=== PATIENT | male | born 1935 | race Caucasian/White ===

== ENCOUNTER 2017-12-12 19:08 | Inpatient (IN) | payer OTHER ==
[~2017-12-12] VITALS: Ht 170.2 cm; Wt 112.6 kg
[~2017-12-12 19:08] MED LIST: ACTEMRA162 MG/0.9 SC; ALENDRONATE SOD35 M2 PO; ALLOPURINOL300 M1 PO; ASPIRIN81 M4 PO; ATORVASTATIN CA20 M1 PO; ATORVASTATIN CA80 M1 PO; CEFUROXIME250 M1 PO; FAMOTIDINE40 M1 PO; FINASTERIDE5 M1 PO; FLOMAX0.4 M1 PO; FUROSEMIDE20 M1 PO; LEVEMIR100 UNIT/1 SC; LISINOPRIL20 M1 PO; METOPROLOL TART25 M1 PO; NOVOLOG100 UNIT/2 SC; PREDNISONE20 M1 PO; PROAIR HFA8.5 GM INH; RANITIDINE HCL150 MG PO; SENNA PLUS TAB1 EACH PO; TAMIFLU75 M1 PO; VITAMIN D31000 UNI2 PO
--- NOTE | 2017-12-12 19:32 | ED INFLUENZA/URI COMPLAINT ---
History of Present Illness General Chief Complaint: Upper Respiratory Sx/Fever Stated Complaint: BIBA COUGH AND CONGESTION Source: patient, family Exam Limitations: no limitations Vital Signs & Intake/Output Vital Signs & Intake/Output Vital Signs Date Time Temp Pulse Resp B/P B/P Pulse O2 O2 Flow FiO2 Mean Ox Delivery Rate 12/13 0029 95 Room Air 12/12 2320 97.9 92 18 136/70 96 Room Air 12/12 2147 98.1 88 18 130/74 95 Room Air 12/12 2000 98 Room Air 12/12 1912 97.3 89 18 126/81 94 Room Air ED Intake and Output 12/13 0000 12/12 1200 Intake Total 0 Output Total Balance 0 Intake, Oral 0 Patient 260 lb Weight Weight Reported by Patient Measurement Method Allergies Coded Allergies: No Known Allergies (05/25/16) Reconcile Medications Albuterol Sulfate (Proair Hfa) 90 MCG HFA.AER.AD 2 PUF INH Q4-6 PRN PRN WHEEZING COUGH Alendronate Sodium 35 MG TABLET 1 TAB PO QSUN BONE STRENGTH (Reported) Allopurinol 300 MG TABLET 1 TAB PO DAILY GOUT (Reported) Aspirin (Aspirin*) 81 MG TAB.CHEW 81 MG PO DAILY heart Aspirin/Acetaminophen/Caffeine (Excedrin Extra Strength Caplet) 250 MG-250 MG-65 MG TABLET 1-2 TAB PO PRN PAIN (Reported) Atorvastatin Calcium 20 MG TABLET 1 TAB PO DAILY CHOLESTEROL (Reported) Finasteride 5 MG TABLET 5 MG PO DAILY prostate Furosemide 20 MG TABLET 4 TAB PO DAILY DIURETIC (Reported) Insulin Aspart (Novolog) 100 UNIT/ML VIAL 0 UNITS SC TIDAC/HS diabetes BEFORE MEALS Blood Insulin Sugar Units <80 0 81-150 6 151-200 8 201-250 10 251-300 12 301-350 14 351-400 16 >400 16 & Call Doctor AT BEDTIME Blood Insulin Sugar Units <80 0 81-100 0 101-200 0 201-250 0 251-300 3 301-350 4 351-400 5 >400 5 & Call Doctor Insulin Detemir (Levemir) 100 UNIT/ML VIAL 8 UNITS SC BID diabetes Metformin HCl 500 MG TABLET 1 TAB PO BID DM (Reported) Metoprolol Succ XL (Toprol XL) 25 MG TAB 1 TAB PO DAILY HEART/BP (Reported) Oseltamivir Phosphate (Tamiflu) 75 MG CAPSULE 1 CAP PO BID INFLUENZA Prednisone 10 MG TABLET 15 MG PO DAILY EYES (Reported) Ranitidine HCl (Acid Plastics Technician) 150 MG TABLET 1 TAB PO BID GI (Reported) Tamsulosin HCl (Flomax) 0.4 MG CAP.ER.24H 0.4 MG PO DAILY Prostate Tocilizumab (Actemra) 162 MG/0.9 ML SYRINGE 0.9 ML SC ONCE A WEEK ANTI- INFLAMMATORY (Reported) Triage Note: PT FROM HOME C/O SOB. PT WAS SEEN HERE IN ER 2 DAYS PRIOR AND TREATED FOR ACUTE BRONCHITIS AND THE FLU WITH PROAIR AND TAMIFLU. PT CONTINUES TO TAKE MEDICATION AND HAS BEEN FEELING MORE WINDED AND SOB UPON AMBULATION. PT HAS AUDIBLE WHEEZING IN TRIAGE. PT HAS A PRODUCTIVE COUGH WITH WHITE/CLEAR SPUTUM. PT IS A&0X3, PTS 02 ON RA IS 94%. Triage Nurses Notes Reviewed? yes HPI: 82 yo M PMH HTN, HLD, CHF, Temporal Arteritis (on prednisone 15 mg QD), Blindness presnting with URI Sx, wheezing, increased WOB. URI Sx for the last 4- 5 days with cough, congestion, rhinorrhea, cough. Wheezing starting 2 days ago, evaluated in this ED, found to have influenza, diagnosed with bronchitis also, discharged on tamiflu and albuterol q4hrs. Per son and daughter since discharge patient has had progression of symptoms with decline in functional status despite outpatient treatments. Today was having loud harsh wheezing and increased work of breathing, seemed unsteady on his feet, aide had difficulty getting him up, unable to ambulate at baseline. Denies fevers, chills, chest pain, palpitations, abdominal Sx, urinary Sx, headache, neck pain or focal neurologic Sx. No known Hx of COPD, bronchitis, or emphysema, 30 pack year smoking history, quit in 1984. (Dexter SARAVIA,Seven) Past History Travel History Traveled to [place] past 21 day No Medical History Any Pertinent Medical History? see below for history Neurological: NONE EENT: macular degeneration, TEMPORAL ARTERITIS BLIND R EYE Cardiovascular: hypertension, hyperlipidemia, myocardial infarction, CABG STENTS Respiratory: NONE Gastrointestinal: NONE Hepatic: NONE Renal: NONE Musculoskeletal: gout, osteoarthritis, BILAT KNEE REPLACEMENT Psychiatric: NONE Endocrine: NONE Blood Disorders: NONE Cancer(s): NONE SPA CONCIERGE/Reproductive: NONE History of MRSA: No History of VRE: No History of CDIFF: No Surgical History Surgical History: CABG (triple vessel 2005), STENTS Psychosocial History Who do you live with Daughter Services at Home None What is your primary language Nigerien Tobacco Use: Quit >30 days ago Family History Family History, If Any: Relation not specified for: FH: heart disease Hx Contributory? Yes (Seven Renteria MD) Review of Systems Review of Systems Constitutional: Reports: see HPI. EENTM: Reports: no symptoms. Respiratory: Reports: see HPI. Cardiovascular: Reports: no symptoms. GI: Reports: no symptoms. Genitourinary: Reports: no symptoms. Musculoskeletal: Reports: see HPI. Skin: Reports: no symptoms. Neurological/Psychological: Reports: no symptoms. Hematologic/Endocrine: Reports: no symptoms. Immunologic/Allergic: Reports: no symptoms. All Other Systems: Reviewed and Negative (Seven Renteria MD) Physical Exam Physical Exam General Appearance: well developed/nourished, mild distress Head: atraumatic Ears, Nose, Throat: moist mucous membrane Neck: normal inspection, full range of motion, no midline tenderness Respiratory: wheezing Comments: Pulmonary: Increased WOB with pursed lip breathing, mild tachypnea, diffuse harsh inspiratory and expiratory wheezes Extremities: Trace bilateral LE edema Core Measures Sepsis Present: No Sepsis Focused Exam Completed? No (Seven Renterai MD) Progress Differential Diagnosis: influenza, meningitis, neutropenia, otitis, pneumonia, pharyngitis, sinusitis Plan of Care: Orders Procedure Date/time Status Consistent Carbohydrate 1 12/13 B Active LACTIC ACID 12/13 0600 Active CBC WITHOUT DIFFERENTIAL 12/13 0600 Active BASIC ELECTROLYTES PLUS BUN&CR 12/13 0600 Active LACTIC ACID 12/13 0039 Active LOWER RESPIRATORY CULTURE 12/13 0036 Active Weight 12/13 0005 Active Vital Signs 12/13 0005 Active Teach/Educate 12/13 0005 Active Pain Treatment and Response 12/13 0005 Active Nutritional Intake, Monitor 12/13 0005 Active Isolation 12/13 0005 Active Intake & Output 12/13 0005 Active Patient Care Conference 12/13 0005 Active Activity/Ambulation 12/13 0005 Active MISSING MEDICATION FORM 12/13 UNK Active ARTERIAL BLOOD GAS (GEN) 12/12 2352 Active Pathway - chart 12/12 235 Active Saline Lock 12/12 2248 Active Misc Message 12/12 2248 Active ED Holding Orders 12/12 2248 Active Admit to inpatient 12/12 2248 Active Vital Signs 12/12 2248 Active Code Status 12/12 2248 Active Patient Data 12/12 2232 Active Admit to inpatient 12/13 2211 Active Add-on Test (ER Only) 12/12 1952 Active EKG 12/12 1952 Active LACTIC ACID 12/12 1941 Complete FingerStick- Glucose 12/12 1940 Active TROPONIN LEVEL 12/12 1940 Complete COMPREHENSIVE METABOLIC PANEL 12/12 1940 Complete CBC WITHOUT DIFFERENTIAL 12/12 1940 Complete Intake & Output 12/12 1936 Active TRC EVALUATION (GEN) 12/12 UNK Active House Staff 12/12 UNK Active Current Medications Sig/Noel Start time Last Medication Dose Stop Time Status Admin Alendronate Sodium 35 MG QSUN 12/14 0700 AC (Fosamax) Insulin Aspart 0 AT BEDTIME 12/13 2200 AC (NovoLOG) Atorvastatin Calcium 20 MG 1700 12/13 1700 AC (Lipitor) Allopurinol 300 MG DAILY 12/13 1000 AC (Zyloprim) Aspirin 81 MG DAILY 12/13 1000 AC (Aspirin) Enoxaparin Sodium 40 MG DAILY 12/13 1000 AC (Lovenox) Finasteride 5 MG DAILY 12/13 1000 AC (Proscar) Furosemide 80 MG DAILY 12/13 1000 AC (Lasix) Insulin Detemir 8 UNITS BID 12/13 1000 AC (Levemir) Metoprolol Succinate 25 MG DAILY 12/13 1000 AC (Toprol XL) Oseltamivir Phosphate 30 MG BID 12/13 1000 AC (Tamiflu) 12/17 0959 Tamsulosin HCl 0.4 MG DAILY 12/13 1000 AC (Flomax) Insulin Aspart 0 TIDAC 12/13 0800 AC (NovoLOG) Methylprednisolone 40 MG Q8 12/13 0600 AC (Solumedrol) Sodium Chloride 1,000 ML Q13H 12/13 0045 UNVr (Normal Saline 0.9%) 12/13 1344 Acetaminophen 650 MG Q6P PRN 12/12 2345 AC (Tylenol) Oseltamivir Phosphate 75 MG ONCE ONE 12/12 2345 CAN (Tamiflu 75MG) 12/12 2346 Oxycodone/ 1 TAB Q6P PRN 12/12 2345 AC Acetaminophen (Percocet) Laboratory Tests 12/12/171941: Anion Gap 12, Estimated GFR > 60, BUN/Creatinine Ratio 16.0, Glucose 139 H, Lactic Acid 2.5 H, Calcium 8.7, Total Bilirubin 0.6, AST 21, ALT 27, Alkaline Phosphatase 77, Troponin I 0.04, Total Protein 6.6, Albumin 3.5, Globulin 3.1, Albumin/Globulin Ratio 1.1, CBC w Diff NO MAN DIFF REQ, RBC 4.14 L, MCV 96.8 H , MCH 31.9 H, MCHC 33.0, RDW 16.8 H, MPV 7.4, Gran % 65.9, Lymphocytes % 27.2, Monocytes % 6.0, Eosinophils % 0.2, Basophils % 0.7, Absolute Granulocytes 4.4, Absolute Lymphocytes 1.8, Absolute Monocytes 0.4, Absolute Eosinophils 0, Absolute Basophils 0 Microbiology 12/14 35 LOWER RESP: Respiratory Culture - ORD 12/14 35 LOWER RESP: Gram Stain - ORD Physician MDM: 82 yo M PMH HTN, HLD, CHF, Temporal Arteritis (on prednisone 15 mg QD), Blindness presnting with URI Sx, wheezing, increased WOB. Room air O2 sat 94%, pulmonary exam as above. DDx: Influenza, bronchitis, pneumonia, COPD exacerbation. Given slight Adderall and 25, DuoNeb, albuterol nebs 2 with minimal improvement in pulmonary exam, mildly prove work of breathing, improvement in subjective respiratory status per patient. Labs remarkable for mild lactic acidosis of 2.5. Chest x-ray without focal consolidation or airspace disease. Given patient having increased work of breathing, recent diagnosis of influenza, failure of outpatient management with albuterol and Tamiflu, will admit for monitoring, ongoing nebulizer treatments, and further evaluation, PT, and dispo planning. Initial ED EKG: normal sinus rhythm (Dexter SARAVIA,Seven) Departure Departure Disposition: STILL A PATIENT Condition: Stable Clinical Impression Primary Impression: Shortness of breath Secondary Impressions: Influenza, Wheezing Referrals: Mitchel Yusuf MD (PCP/Family) Departure Forms: Customer Survey General Discharge Information Admission Note Spoke With: Joanne Jauregui MD Documentation of Exam: Documentation of any treatments & extenuating circumstances including Concerns Regarding Discharge (functional status, medication knowledge or non-compliance, living conditions, etc.) that warrant an admission rather than observation: [ Patient presents with increased work of breathing and relative hypoxia on room air in the setting of recent influenza diagnosis, patient has failed outpatient treatment with Tamiflu and albuterol, has had progressive decline and pulmonary status and functional status at home, patient requires admission for frequent nebulized albuterol treatments, possible pulmonology consult, monitoring given decline in respiratory status, if discharged patient has a high likelihood of progressive respiratory collapse, with hypoxic rest dry failure, and ] (Dexter SARAVIA,Seven) Resident Co-Sign Statement Statement: ED Attending supervision documentation- [x] I saw and evaluated the patient. I have also reviewed all the pertinent lab results and diagnostic results. I agree with the findings and the plan of care as documented in the Resident's documentation. 12/12/17, 21:00... pt with hypoxia, wheezing, failure to thrive, merits steroids, abx, 02 support. [] I have reviewed the ED Record and agree with the Resident's documentation. [] Additions or exceptions (if any) to the Resident's note and plan are summarized below: [] (Vijay SARAVIA,Anam Zapata)
[2017-12-12] MEDS ORDERED: PREDNISONE10 M2 PO (19:33)
[2017-12-12] MEDS ORDERED: TOPROL XL25 M1 PO (19:34)
[2017-12-12] MEDS ORDERED: EXCEDRIN EXTRA1 EACH PO (19:35)
[2017-12-12] MEDS ORDERED: ACID REDUCER150 MG PO (19:35)
[2017-12-12] MEDS ORDERED: METFORMIN HCL500 M3 PO (19:38)
[2017-12-12 19:53] LABS: ABSOLUTE BASOPHIL COUNT 0 /CUMM (0.0-0.2); ABSOLUTE EOSINOPHIL COUNT 0 /CUMM (0.0-0.7); ABSOLUTE GRANULOCYTE CT 4.4 /CUMM (1.4-6.5); ABSOLUTE LYMPH COUNT 1.8 /CUMM (1.2-3.4); ABSOLUTE MONOCYTE COUNT 0.4 /CUMM (0.10-0.60); BASOPHIL % 0.7 % (0.0-2.0); EOSINOPHIL % 0.2 % (0-5); GRANULOCYTE % 65.9 % (42.2-75.2); HEMATOCRIT 40.1 % (42-52); MEAN CORPUSCULAR HGB 31.9 PG (27.0-31.0); MEAN CORPUSCULAR VOLUME 96.8 FL (80.0-94.0); MEAN PLATELET VOLUME 7.4 FL (7.4-10.4); PLATELET COUNT 144 /CUMM (130-400); RBC DISTRIBUTION WIDTH 16.8 % (11.5-14.5); RED BLOOD CELL CT 4.14 /CUMM (4.70-6.10); WHITE BLOOD CELL COUNT 6.6 /CUMM (4.8-10.8)
--- NOTE | 2017-12-12 21:10 | RADIOLOGY REPORT ---
EXAMINATION: XR PORTABLE CHEST CLINICAL INFORMATION: 82-year-old male patient with cough. Positive influenza. COMPARISON: Chest x-ray done 12/10/2017. CTA of the chest on the same day. TECHNIQUE: Portable AP semierect view of the chest was obtained. FINDINGS: The cardiac silhouette is prominent as before but some of this is due to the prominent epicardial fat in the mediastinum. The patient is known to have mediastinal lipomatosis. The sternal wires are intact. The lungs are clear showing no evidence of consolidation or atelectasis. IMPRESSION: No pneumonia.
--- NOTE | 2017-12-12 22:30 | History & Physical ---
Andrew SARAVIA,[facility] 12/12/179: General Information and HPI MD Statement: I have seen and personally examined MONIKA FIGUEROA and documented this H&P. The patient is a 82 year old M who presented with a patient stated chief complaint of [cough, wheezing, dyspnea]. Source of Information: patient Exam Limitations: no limitations History of Present Illness: 82 yo M PMH hypertension, diabetes, hyperlipidemia, CHF, BPH, OA, Temporal Arteritis (on prednisone 15 mg QD) with right eye blindness and left eye macular degeneration, [place] 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 The patient states that on Friday night he was watching TV when he had difficulty catching his breath. He also started coughing along with white sputum production. His symptoms have been progressing. Two days ago he was evaluated in the ED and was found to be positive for Influenza. He was diagnosed with bronchitis and discharged on a course of Tamiflu and nebs. However, despite breathing he has been experiencing increased wheezing and difficulty breathing. His visiting nurse suggested him to visit the ED again for treatment. The patient denies any sick contacts. Allergies/Medications Allergies: Coded Allergies: No Known Allergies (05/25/16) Home Med list Albuterol Sulfate (Proair Hfa) 90 MCG HFA.AER.AD 2 PUF INH Q4-6 PRN PRN WHEEZING COUGH Alendronate Sodium 35 MG TABLET 1 TAB PO QSUN BONE STRENGTH (Reported) Allopurinol 300 MG TABLET 1 TAB PO DAILY GOUT (Reported) Aspirin (Aspirin*) 81 MG TAB.CHEW 81 MG PO DAILY heart Aspirin/Acetaminophen/Caffeine (Excedrin Extra Strength Caplet) 250 MG-250 MG-65 MG TABLET 1-2 TAB PO PRN PAIN (Reported) Atorvastatin Calcium 20 MG TABLET 1 TAB PO DAILY CHOLESTEROL (Reported) Finasteride 5 MG TABLET 5 MG PO DAILY prostate Furosemide 20 MG TABLET 4 TAB PO DAILY DIURETIC (Reported) Insulin Aspart (Novolog) 100 UNIT/ML VIAL 0 UNITS SC TIDAC/HS diabetes BEFORE MEALS Blood Insulin Sugar Units <80 0 81-150 6 151-200 8 201-250 10 251-300 12 301-350 14 351-400 16 >400 16 & Call Doctor AT BEDTIME Blood Insulin Sugar Units <80 0 81-100 0 101-200 0 201-250 0 251-300 3 301-350 4 351-400 5 >400 5 & Call Doctor Insulin Detemir (Levemir) 100 UNIT/ML VIAL 8 UNITS SC BID diabetes Metformin HCl 500 MG TABLET 1 TAB PO BID DM (Reported) Metoprolol Succ XL (Toprol XL) 25 MG TAB 1 TAB PO DAILY HEART/BP (Reported) Oseltamivir Phosphate (Tamiflu) 75 MG CAPSULE 1 CAP PO BID INFLUENZA Prednisone 10 MG TABLET 15 MG PO DAILY EYES (Reported) Ranitidine HCl (Acid Spar Machine Operator Helper) 150 MG TABLET 1 TAB PO BID GI (Reported) Tamsulosin HCl (Flomax) 0.4 MG CAP.ER.24H 0.4 MG PO DAILY Prostate Tocilizumab (Actemra) 162 MG/0.9 ML SYRINGE 0.9 ML SC ONCE A WEEK ANTI- INFLAMMATORY (Reported) Past History Travel History Traveled to [place] past 21 day No Medical History Neurological: NONE EENT: macular degeneration, TEMPORAL ARTERITIS BLIND R EYE Cardiovascular: hypertension, hyperlipidemia, myocardial infarction, CABG STENTS Respiratory: NONE Gastrointestinal: NONE Hepatic: NONE Renal: NONE Musculoskeletal: gout, osteoarthritis, BILAT KNEE REPLACEMENT Psychiatric: NONE Endocrine: NONE Blood Disorders: NONE Cancer(s): NONE AIRCRAFT TIME CLERK/Reproductive: NONE History of MRSA: No History of VRE: No History of CDIFF: No Surgical History Surgical History: CABG (triple vessel 2005), STENTS Past Family/Social History Family History Relations & Conditions if any Relation not specified for: FH: heart disease Psychosocial History Who Do You Live With? child Services at Home: None Primary Language: Malian Functional Ability ADLs Independent: dressing, eating, toileting, bathing. Ambulation: walker Review of Systems Review of Systems Constitutional: Reports: weakness. Denies: chills, fever. EENTM: Reports: no symptoms. Cardiovascular: Denies: chest pain, palpitations. Respiratory: Reports: cough, short of breath, sputum production, wheezing. GI: Reports: no symptoms. Genitourinary: Reports: no symptoms. Musculoskeletal: Denies: joint pain. Skin: Reports: no symptoms. Neurological/Psychological: Reports: no symptoms. Exam & Diagnostic Data Last 24 Hrs of Vital Signs/I&O Vital Signs Date Time Temp Pulse Resp B/P B/P Pulse O2 O2 Flow FiO2 Mean Ox Delivery Rate 12/12 2147 98.1 88 18 130/74 95 Room Air 12/12 2000 98 Room Air 12/13 1911 97.3 89 18 126/81 94 Room Air Physical Exam General Appearance Alert, Oriented X3, Cooperative, Mild Distress Skin No Rashes, No Breakdown Skin Temp/Moisture Exam: Warm/Dry Sepsis Skin Exam (color): Normal for Ethnicity HEENT Atraumatic Cardiovascular Normal S1, Normal S2, No Murmurs Lungs diffuse expiratory wheezing and rhonchi Abdomen Soft, No Tenderness Neurological Normal Speech Extremities b/l lower extremity edema Assessment/Plan Assessment: 82 yo M PMH hypertension, diabetes, hyperlipidemia, BPH, CHF, OA, Temporal Arteritis (on prednisone 15 mg QD) with right eye blindness and left eye macular degeneration, [place] 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 Assessment: 1. Influenza 2. Viral Bronchitis 3. History of Temporal Arteritis on Prednisone 4. History of Diabetes 5. History of hypertension, CAD 6. Elevated Lactic Acid Plan: * Admit patient to general medicine floor * Continue course of Tamiflu * TRC/nebs as needed * Follow up Sputum Culture and Gram Stain * Start Solu-Medrol 40mg q8 from tomorrow. He already received a dose of 125mg this evening in the ER. * Trend Lactic Acid. * Hydrate with NS @ 75cc/hr * low threshold to start oxygen if needed. * Hold Prednisone 15mg (home dose) as he is receiving IV steroids at this time. Will taper his steroids down to 15mg at discharge. * Insulin SS along with Accucheks. Hold metformin. * Levemir 8 units BID * Continue home meds: atorvastatin, aspirin, allopurinol, alendronate, finasteride, tamsulosin, metoprolol * Diet: Diabetic * DVT Prophylaxis: SC Lovenox * Code: Full As Ranked By This Provider Problem List: 1. Influenza Core Measures/Misc (06/08) Acute Coronary Syndrome ACS Diagnosis: No Congestive Heart Failure Congestive Heart Failure Diagnosis No Cerebrovascular Accident CVA/TIA Diagnosis: No VTE (View Protocol) VTE Risk Factors Age>40 No Mechanical VTE Prophylaxis d/t N/A MechProphylax Ordered No VTE Pharm Prophylaxis d/t NA PharmProphylax ordered Sepsis (View protocol) Sepsis Present: No Juventino SARAVIA, [facility] 12/13/17 0116: Attending MD Review Statement Attending Statement Attending MD Statement: examined this patient, discuss w/resident/PA/RAILROAD CAR INSPECTOR, agreed w/resident/PA/RAILROAD CAR INSPECTOR, reviewed images, amended to note Attending Assessment/Plan: 82 yo M with h/o CAD s/p stents and CABG, HTN, DM, temporal arteritis on prednisone, legally blind in right eye, macular degeneration in left eye, OA, chronic LE edema, was diagnosed with Influenza/bronchitis 2 days ago (seen in ER on December 10) and prescribed tamiflu with albuterol inhaler. He returns today for worsening dyspnea, productive cough, wheeezing and chest congestion. At baseline , patient uses a walker to ambulate while he uses a wheelchair when going out. Patient has been weak, fatigued and unsteady on his feet for the past few days. Vitals stable. Chest: b/l diffuse expiratory wheeze++. Labs: no leukocytosis, macrocytic anemia, bicarb 33, glucose 139, lactic acid 2.5, trop neg. CXR: no pneumonia. EKG: sinus rhythm, RBBB, no acute changes. Echo (2016): EF 55-60%. Assessment and plan: 1. Acute viral bronchitis, Influenza 2. Severe wheezing, patient is an ex-smoker, no definitive diagnosis of COPD 3. Hypercarbia 4. History of CAD 5. Diabetes mellitus on insulin 6. Sacral decubitus wounds - Admit to general medicine - TRC nebs Q4 when awake - Sputum culture - IV solumedrol 40 Q8 - Hold PO prednisone while patient is on IV steroids - No need for antibiotics - Complete course of tamiflu - O2 via NC to keep sats > 92% - Obtain baseline ABG - Gentle hydration, trend lactic acid - Wound care consult, apply xeroform to the wounds - Diabetes management while patient is on steroids - Continue all home meds - PT eval DVT ppx Lovenox. Full code. Janelle SARAVIA,[facility] 12/13/17 0252: Resident Review Statement Resident Statement: examined this patient, discussed with product managent intern, agreed with product managent intern Other Findings: The patient is an 82 -year-old man with a past medical history of hypertension, diabetes, hyperlipidemia, CHF, BPH, osteoarthritis, Temporal Arteritis (on prednisone 15 mg QD) with right eye blindness and left eye macular degeneration, [place] s/p CABG 12 years ago who presented to the ER with complaints of worsening shortness of breath, cough productive of whitish sputum and wheezing of 5 days duration. On account of his worsening symptoms presented to an urgent care facility 2 days ago and in the ER where was found to be flu positive and prescribed because of Tamiflu and oral steroid. However patient's symptoms are worsening and he had generalized weakness and was seen by his visiting nurse today will suggest that he come to the ER for treatment. He denies fevers, or chills and denies any sick contacts. Vital signs at presentation in the ER showed a temperature of 97.3, pulse of 89, respiratory rate of 18, blood pressure of 126/81 mmHg, pulse oximetry of 94% on room air. Labs significant for elevated lactic acid 2.5, creatinine 1.0, potassium 4, sodium 139, bicarbonate elevated at 33. Troponins at 0.04. Physical exam is significant for an elderly man, not in distress on room air. Alert and oriented 3. HEENT: PERRLA, EOMI Chest: Bilateral scattered wheeze and coarse crepitations in the lung bases CVS: Regular rate and rhythm, S1-S2 normal with normal murmurs Abdomen: Obese, nontender with no hepatosplenomegaly. Bowel sounds normal. Extremities: Mild +1 bilateral pedal edema, normal pulses in dorsalis pedis artery bilaterally EKG: Sinus rhythm, heart rate 92 bpm, left bundle branch block, similar to previous Chest x-ray shows no evidence of pneumonia with clear lung velazquez Assessment 1. Influenza 2. Bronchitis 3. Dehydration with lactic acidosis 4. Diabetes mellitus 5. History of CHF 6. Temporal arteritis on prednisone therapy 7. History of hypertension 8. History of coronary artery disease Plan * Admit to general medicine * Patient received IV Solu Medrol 125 mg in the ER. Will continue IV Solu- Medrol 40 mg every 8 hours * [facility] evaluation for nebulizer therapy * Do an ABG now to assess for hypercarbia * Continue by mouth Tamiflu at renal adjusted dose of 30 mg twice a day on account of patient's creatinine clearance of 55 which is below the 60 mL/min cut off point for full dosing * Gentle hydration with IV normal saline at 75 mL an hour 1 bag * Trend lactic acid * In the morning continue patient's home medication for CHF Lasix by mouth 80 mg daily * Accu-Cheks 3 times a day before meals at bedtime * Hold metformin home medication and start NovoLog sliding scale 3 times a day before meals at bedtime and subcutaneous Levemir 8 units twice a day * Hold 15 mg daily prednisone home medication for temporal arthritis while patient is on IV high-dose steroids for bronchitis * We'll taper steroids back down to prednisone 15 mg daily at time of discharge or shortly thereafter * Continue medication for hypertension and CAD with metoprolol 25 mg daily, aspirin, atorvastatin 20 mg daily * Continue other home medication Fosamax, Flomax, allopurinol for gout * DVT prophylaxis with subcutaneous Lovenox * Patient is full code
--- NOTE | 2017-12-13 01:18 | Admission Certification ---
Admission Certification Certification Statement - As attending physician, I certify that at the time of - admission, based on clinical presentation, severity of - symptoms, need for further diagnostic testing and - therapeutic interventions, and risk of adverse outcomes - without in-hospital treatment, in my clinical assessment, - this patient requires an acute hospital stay for a minimum - of two nights or longer. I have also considered psychsocial - factors such as support system, advanced age, financial - issues, cognitive issues, and failed out-patient treatments, - past re-admission history, safety of patient, and lack of - compliance as applicable. Specific rationale supporting this admission is: Influenza Type B, bronchitis, no evidence of pneumonia with worsening respiratory distress/ wheezing.
[2017-12-13 01:24] VITALS: BP 134/74
--- NOTE | 2017-12-13 05:26 | PN- Housestaff ---
See Addendum Subjective Follow-up For: Influenza Wheezing Subjective: Patient was seen and examined at bedside. He states he feels no different than when he came in last night despite the treatment. He can still hear his breathing. Review of Systems Constitutional: Reports: no symptoms. Respiratory: Reports: cough, wheezing. Objective Last 24 Hrs of Vital Signs/I&O Vital Signs Date Time Temp Pulse Resp B/P B/P Pulse O2 O2 Flow FiO2 Mean Ox Delivery Rate 12/13 0317 Nasal Cannula 12/13 0124 97.9 96 18 134/74 95 Room Air 12/13 0029 95 Room Air 12/12 2320 97.9 92 18 136/70 96 Room Air 12/12 2147 98.1 88 18 130/74 95 Room Air 12/12 2000 98 Room Air 12/12 1912 97.3 89 18 126/81 94 Room Air Intake & Output 12/13 0800 12/13 0000 12/12 1600 Intake Total 0 Output Total Balance 0 Intake, Oral 0 Patient 267 lb 260 lb Weight Weight Reported by Patient Measurement Method Physical Exam General Appearance: Alert, Oriented X3, Cooperative, Mild Distress Skin: No Rashes, No Breakdown Skin Temp/Moisture Exam: Warm/Dry Sepsis Skin Exam (color): Normal for Ethnicity HEENT: Atraumatic Cardiovascular: Normal S1, Normal S2, No Murmurs Lungs: diffuse rhonchi and wheezing Abdomen: Soft, No Tenderness Neurological: Normal Speech Extremities: trace edema of b/l lower extremities Assessment/Plan Assessment: 82 yo M PMH hypertension, diabetes, hyperlipidemia, BPH, CHF, OA, Temporal Arteritis (on prednisone 15 mg QD) with right eye blindness and left eye macular degeneration, [place] 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 Assessment: 1. Influenza 2. Viral Bronchitis 3. History of Temporal Arteritis on Prednisone 4. History of Diabetes 5. History of hypertension, CAD 6. Elevated Lactic Acid Plan: * Continue course of Tamiflu * TRC/nebs as needed * Follow up Sputum Culture and Gram Stain * Start Solu-Medrol 40mg q8 from today. Can likely be tapered tomorrow. * low threshold to start oxygen if needed. * Hold Prednisone 15mg (home dose) as he is receiving IV steroids at this time. Will taper his steroids down to 15mg at discharge. * Insulin SS along with Accucheks. Hold metformin. * Levemir 8 units BID * Lactic acid from this morning - pending. Last was 2.0 * Continue home meds: atorvastatin, aspirin, allopurinol, alendronate, finasteride, tamsulosin, metoprolol * Diet: Diabetic * DVT Prophylaxis: SC Lovenox * Code: Full Problem List: 1. Influenza 2. Wheezing Pain Ratin Pain Location: none Pain Goal: Remain pain free Pain Plan: none Tomorrow's Labs & Rationales: CBC, BEP
[2017-12-13 06:58] VITALS: BP 132/72
[2017-12-13 08:59] LABS: ABSOLUTE BASOPHIL COUNT 0 /CUMM (0.0-0.2); ABSOLUTE EOSINOPHIL COUNT 0 /CUMM (0.0-0.7); ABSOLUTE GRANULOCYTE CT 4.5 /CUMM (1.4-6.5); ABSOLUTE LYMPH COUNT 1.1 /CUMM (1.2-3.4); ABSOLUTE MONOCYTE COUNT 0.2 /CUMM (0.10-0.60); BASOPHIL % 0.3 % (0.0-2.0); EOSINOPHIL % 0.4 % (0-5); GRANULOCYTE % 77.2 % (42.2-75.2); MEAN CORPUSCULAR HGB 32.5 PG (27.0-31.0); MEAN CORPUSCULAR HGB CONC 33.4 G/DL (33.0-37.0); MEAN CORPUSCULAR VOLUME 97.1 FL (80.0-94.0); MEAN PLATELET VOLUME 7.8 FL (7.4-10.4); PLATELET COUNT 123 /CUMM (130-400); RBC DISTRIBUTION WIDTH 17.3 % (11.5-14.5); RED BLOOD CELL CT 3.92 /CUMM (4.70-6.10); WHITE BLOOD CELL COUNT 5.8 /CUMM (4.8-10.8)
[2017-12-13 14:47] VITALS: BP 130/80
[2017-12-13 22:13] VITALS: BP 130/60
--- NOTE | 2017-12-13 22:51 | Patient Discharge Instructions ---
Discharge Instructions General Discharge Information You were seen/treated for: Influenza Bronchitis Watch for these problems: Fever, chest pain, shortness of breath Special Instructions: Please follow up with your PCP within one week of discharge. Please take all medications as directed. Diet Continue normal diet: Yes Activity Full Activity/No Limits: Yes Acute Coronary Syndrome Inclusion Criteria At DC or during hospital stay patient has or had the following: ACS DIAGNOSIS No Discharge Core Measures Meds if any: Prescribed or Continued at Discharge Meds if any: NOT Prescribed or Continued at Discharge Congestive Heart Failure Inclusion Criteria At DC or during hospital stay patient has or had the following: CHF DIAGNOSIS No Discharge Core Measures Meds if any: Prescribed or Continued at Discharge Meds if any: NOT Prescribed or Continued at Discharge Cerebrovascular accident Inclusion Criteria At DC or during hospital stay patient has or had the following: CVA/TIA Diagnosis No Discharge Core Measures Meds if any: Prescribed or Continued at Discharge Meds if any: NOT Prescribed or Continued at Discharge Venous thromboembolism Inclusion Criteria VTE Diagnosis No VTE Type NONE VTE Confirmed by (Test) NONE Discharge Core Measures - Per Current guidelines, there needs to be overlap - treatment for the first 5 days of Warfarin therapy. - If discharged on Warfarin prior to 5 days of - overlap therapy, the patient will need to be - assessed for post discharge needs including - *Post discharge parental anticoagulation - *Warfarin and/or parental anticoagulation education - *Follow up date to check INR post discharge At least 5 days overlap therapy as Inpatient No Meds if any: Prescribed or Continued at Discharge Note: Overlap Therapy is Warfarin and Anticoagulant Meds if any: NOT Prescribed or Continued at Discharge
[2017-12-14 06:00] VITALS: BP 128/64
[2017-12-14 08:15] LABS: ABSOLUTE BASOPHIL COUNT 0 /CUMM (0.0-0.2); ABSOLUTE EOSINOPHIL COUNT 0 /CUMM (0.0-0.7); ABSOLUTE LYMPH COUNT 1.2 /CUMM (1.2-3.4); ABSOLUTE MONOCYTE COUNT 0.1 /CUMM (0.10-0.60); EOSINOPHIL % 0 % (0-5)
[2017-12-14 08:57] LABS: ABSOLUTE GRANULOCYTE CT 8.1 /CUMM (1.4-6.5); BASOPHIL % 0.1 % (0.0-2.0); GRANULOCYTE % 86.2 % (42.2-75.2); HEMATOCRIT 39.9 % (42-52); MEAN CORPUSCULAR HGB 32.1 PG (27.0-31.0); MEAN CORPUSCULAR HGB CONC 32.8 G/DL (33.0-37.0); MEAN CORPUSCULAR VOLUME 97.9 FL (80.0-94.0); MEAN PLATELET VOLUME 7.9 FL (7.4-10.4); PLATELET COUNT 155 /CUMM (130-400); RBC DISTRIBUTION WIDTH 17.1 % (11.5-14.5); RED BLOOD CELL CT 4.08 /CUMM (4.70-6.10)
[2017-12-14 08:59] LABS: WHITE BLOOD CELL COUNT 9.4 /CUMM (4.8-10.8)
--- NOTE | 2017-12-14 09:41 | PN- Housestaff ---
Moe,[facility] 12/14/17 0932: Subjective Follow-up For: Influenza/bronchitis Complaints: MMILD WHEEZING Subjective: Patient was seen and examined at bedside. Breathing is much improved today. Saturating 94% on room air. Has been ambulating to the bathroom by himself without being short of breath. Review of Systems Constitutional: Reports: weakness. EENTM: Reports: no symptoms. Cardiovascular: Reports: no symptoms. Respiratory: Reports: short of breath, wheezing. Gastrointestinal: Reports: no symptoms. Genitourinary: Reports: no symptoms. Musculoskeletal: Reports: no symptoms. Skin: Reports: no symptoms. Objective Last 24 Hrs of Vital Signs/I&O Vital Signs Date Time Temp Pulse Resp B/P B/P Pulse O2 O2 Flow FiO2 Mean Ox Delivery Rate 12/14 1550 97 Room Air 12/14 1446 98.4 88 22 130/70 94 12/14 1029 97 132/70 12/14 1026 97 132/70 12/14 0918 94 Room Air Room Air 12/14 0600 98.0 98 18 128/64 96 Room Air 12/14 0000 Room Air 12/13 2213 98.1 102 19 130/60 95 Room Air Intake & Output 12/14 1600 12/14 0800 12/14 0000 Intake Total 1100 480 705 Output Total 250 500 Balance 1100 230 205 Intake, IV 225 Intake, Oral 1100 480 480 Output, Urine 250 500 Patient 115.751 kg Weight Weight Bed scale Measurement Method Physical Exam General Appearance: Alert, Oriented X3, Cooperative, No Acute Distress Skin: No Rashes Skin Temp/Moisture Exam: Warm/Dry Sepsis Skin Exam (color): Normal for Ethnicity HEENT: Atraumatic, PERRLA, EOMI Neck: Supple, No JVD Lymphatic: Cervical nl Cardiovascular: Regular Rate, Normal S1, Normal S2, No Murmurs Lungs: BILATERAL RHONCHI Abdomen: Normal Bowel Sounds Neurological: Normal Gait, Normal Speech, Normal Tone Extremities: No Clubbing, No Cyanosis, No Edema, Normal Pulses Last 24 Hrs of Lab/Dagoberto Results Last 24 Hrs of Labs/Mics: Laboratory Tests 12/14/17 0750: Anion Gap 11, Estimated GFR > 60, BUN/Creatinine Ratio 17.0, CBC w Diff MAN DIFF ORDERED, RBC 4.08 L, MCV 97.9 H, MCH 32.1 H, MCHC 32.8 L, RDW 17.1 H, MPV 7.9, Gran % 86.2 H, Lymphocytes % 12.6 L, Monocytes % 1.1 L, Eosinophils % 0, Basophils % 0.1, Absolute Granulocytes 8.1 H, Segmented Neutrophils 81 H, Band Neutrophils 5, Absolute Lymphocytes 1.2, Lymphocytes 12 L, Monocytes 2, Absolute Monocytes 0.1, Absolute Eosinophils 0, Absolute Basophils 0, Nucleated RBCs 1 H, Platelet Estimate ADEQUATE, Anisocytosis 1+ Assessment/Plan Assessment: Assessment: 82 yo M PMH hypertension, diabetes, hyperlipidemia, BPH, CHF, OA, Temporal Arteritis (on prednisone 15 mg QD) with right eye blindness and left eye macular degeneration, [place] 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 1. Influenza 2. Viral Bronchitis 3. History of Temporal Arteritis on Prednisone 4. History of Diabetes 5. History of hypertension, CAD 6. Elevated Lactic Acid Plan: * Continue course of Tamiflu * TRC/nebs as needed * Sputum growing gram-negative rods and staph aureus sputum growing gram- negative rods and staph aureus. Will add augmentin pending culture and sensitivity. * Steroids 40 q8h a day.Holding Prednisone 15mg (home dose) as he is receiving IV steroids at this time. * Maintain saturations more than> 92% * Insulin SS along with Accucheks. Hold metformin. * Levemir 8 units BID * Lactic acid normalized. * Continue home meds: atorvastatin, aspirin, allopurinol, alendronate, finasteride, tamsulosin, metoprolol * Diet: Diabetic * DVT Prophylaxis: SC Lovenox * Code: Full Problem List: 1. Influenza 2. Wheezing 3. Acute bronchitis Pain Ratin Pain Location: NA Pain Goal: Remain pain free Pain Plan: Tylenol Tomorrow's Labs & Rationales: BEP, hypokalemia Pierre SARAVIA,Kirstie 12/14/17 1245: Attending MD Review Statement Attending Statement Attending MD Statement: examined this patient, discuss w/resident/PA/DRAPERY ESTIMATOR, agreed w/resident/PA/DRAPERY ESTIMATOR, reviewed EMR data (avail), discussed with nursing, discussed with case mgmt, reviewed images, amended to note Attending Assessment/Plan: Patient seen and examined, overall better today. But still having significant amount of wheezing. Vital Signs Date Time Temp Pulse Resp B/P B/P Pulse O2 O2 Flow FiO2 Mean Ox Delivery Rate 12/14 1029 97 132/70 12/14 1026 97 13270 12/14 0918 94 Room Air Room Air 12/14 0600 98.0 98 18 128/64 96 Room Air 12/14 0000 Room Air 12/13 2213 98.1 102 19 130/60 95 Room Air 12/13 1600 Room Air Room Air 12/13 1447 98.0 100 22 130/80 94 on exam: aox3, nad cv; s1, s2, rrr resp; + exp wheeze b/l abd: soft, nt, bs+ ext; 1+ edema Laboratory Tests 12/14 0750 Chemistry Sodium (137 - 145 mmol/L) 139 Potassium (3.5 - 5.1 mmol/L) 3.9 Chloride (98 - 107 mmol/L) 95 L Carbon Dioxide (22 - 30 mmol/L) 33 H Anion Gap (5 - 16) 11 BUN (9 - 20 mg/dL) 17 Creatinine (0.7 - 1.2 mg/dL) 1.0 Estimated GFR (>60 ml/min) > 60 BUN/Creatinine Ratio (7 - 25 %) 17.0 Hematology CBC w Diff MAN DIFF ORDERED WBC (4.8 - 10.8 /CUMM) 9.4 RBC (4.70 - 6.10 /CUMM) 4.08 L Hgb (14.0 - 18.0 G/DL) 13.1 L Hct (42 - 52 %) 39.9 L MCV (80.0 - 94.0 FL) 97.9 H MCH (27.0 - 31.0 PG) 32.1 H MCHC (33.0 - 37.0 G/DL) 32.8 L RDW (11.5 - 14.5 %) 17.1 H Plt Count (130 - 400 /CUMM) 155 MPV (7.4 - 10.4 FL) 7.9 Gran % (42.2 - 75.2 %) 86.2 H Lymphocytes % (20.5 - 51.1 %) 12.6 L Monocytes % (1.7 - 9.3 %) 1.1 L Eosinophils % (0 - 5 %) 0 Basophils % (0.0 - 2.0 %) 0.1 Absolute Granulocytes (1.4 - 6.5 /CUMM) 8.1 H Segmented Neutrophils (42.2 - 75.2 %) 81 H Band Neutrophils (0.0 - 5.0 %) 5 Absolute Lymphocytes (1.2 - 3.4 /CUMM) 1.2 Lymphocytes (20.5 - 51.1 %) 12 L Monocytes (1.7 - 9.3 %) 2 Absolute Monocytes (0.10 - 0.60 /CUMM) 0.1 Absolute Eosinophils (0.0 - 0.7 /CUMM) 0 Absolute Basophils (0.0 - 0.2 /CUMM) 0 Nucleated RBCs (0.0 - 0.0 /100WBC) 1 H Platelet Estimate (ADEQUATE) ADEQUATE Anisocytosis 1+ A/P: 82 y/o M hypertension, diabetes, hyperlipidemia, CHF, BPH, OA, Temporal Arteritis (on prednisone 15 mg QD) with right eye blindness and left eye macular degeneration, [place] 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 Sputum culture growing gram-negative rods and staph are yes. Continue IV steroids at the present frequency which is every 8 hours. Continue Tamiflu. We'll add Augmentin, will follow-up on the sputum culture and adjust in about its accordingly. Continue TRC nebs. Continue the rest of the Mx. DvT: Lovenox. Please order PT eval.
[2017-12-14 14:46] VITALS: BP 130/70
[2017-12-14 22:47] VITALS: BP 130/60
[2017-12-15 07:02] VITALS: BP 126/62
--- NOTE | 2017-12-15 07:53 | PN- Housestaff ---
Andrew SARAVIA,[facility] 12/15/17 0753: Subjective Follow-up For: Influenza Bronchitis Subjective: Patient was seen and examined at bedside. Reports doing better though wheezing is still present. States his last BM was on . Is without complaints. Review of Systems Constitutional: Reports: no symptoms. Objective Last 24 Hrs of Vital Signs/I&O Vital Signs Date Time Temp Pulse Resp B/P B/P Pulse O2 O2 Flow FiO2 Mean Ox Delivery Rate 12/15 0702 97.7 85 22 126/62 92 Room Air 12/14 2247 97.7 91 22 130/60 94 Room Air 12/14 1550 97 Room Air 12/14 1446 98.4 88 22 130/70 94 12/14 1029 97 132/70 12/14 1026 97 132/70 12/14 0918 94 Room Air Room Air Intake & Output 12/15 1600 12/15 0800 12/15 0000 Intake Total 120 600 Output Total 500 1025 Balance -500 120 -425 Intake, Oral 120 600 Output, Urine 500 1025 Patient 255 lb Weight Weight Bed scale Measurement Method Physical Exam General Appearance: Alert, Oriented X3, Cooperative, Mild Distress Skin: No Rashes, No Breakdown Skin Temp/Moisture Exam: Warm/Dry Sepsis Skin Exam (color): Normal for Ethnicity HEENT: Atraumatic Cardiovascular: Normal S1, Normal S2, No Murmurs Lungs: Normal Air Movement, diffuse wheezing throughout Abdomen: Soft, No Tenderness Neurological: Normal Speech Extremities: trace edema Assessment/Plan Assessment: 82 yo M PMH hypertension, diabetes, hyperlipidemia, BPH, CHF, OA, Temporal Arteritis (on prednisone 15 mg QD) with right eye blindness and left eye macular degeneration, [place] 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 1. Influenza 2. Viral Bronchitis 3. History of Temporal Arteritis on Prednisone 4. History of Diabetes 5. History of hypertension, CAD 6. Elevated Lactic Acid - elevated Plan: * Continue course of Tamiflu for now. Can be discontinued tonight. * TRC/nebs as needed * Sputum cultures are growing gram-negative rods and staph aureus sputum growing gram-negative rods and staph aureus sensitive to augmentin. He can be discharged on this. * Decrease IV Solu- Medrol to 40mg q12. Holding Prednisone 15mg (home dose) as he is receiving IV steroids at this time. * Maintain saturations more than > 92%. Oxygen if needed. * Insulin SS along with Accucheks. Hold metformin. * Levemir 8 units BID * Lactic acid normalized. * Continue home meds: atorvastatin, aspirin, allopurinol, alendronate, finasteride, tamsulosin, metoprolol * Diet: Diabetic * DVT Prophylaxis: SC Lovenox * Code: Full Problem List: 1. Influenza 2. Wheezing Pain Ratin Pain Location: none Pain Goal: Remain pain free Pain Plan: none Tomorrow's Labs & Rationales: CBC Derrick Payne 12/15/17 1148: Attending MD Review Statement Attending Statement Attending MD Statement: examined this patient, discuss w/resident/PA/SIEBEL DEVELOPER, agreed w/resident/PA/SIEBEL DEVELOPER, discussed with family, reviewed EMR data (avail), discussed with nursing, discussed with case mgmt, reviewed images, amended to note Attending Assessment/Plan: 82 y/o M hypertension, diabetes, hyperlipidemia, CHF, BPH, OA, Temporal Arteritis (on prednisone 15 mg QD) with right eye blindness and left eye macular degeneration, [place] 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 Taper steroids and PO tomorrow. Continue Tamiflu. c/w Augmentin, f/u final C/S. Continue TRC nebs. PT eval for dc planning. RISS and titrate insulin as needed. Continue the rest of the Mx. DvT: Lovenox.
--- NOTE | 2017-12-15 08:14 | Discharge Summary ---
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 Below is a list of conditions she was treated for: Allergies: Coded Allergies: No Known Allergies (05/25/16) Significant Procedures: SERVICE DATE: 12/12/17 EXAM TYPE: RAD - XRY-PORTABLE CHEST XRAY FINDINGS: The cardiac silhouette is prominent as before but some of this is due to the prominent epicardial fat in the mediastinum. The patient is known to have mediastinal lipomatosis. The sternal wires are intact. The lungs are clear showing no evidence of consolidation or atelectasis. IMPRESSION: No pneumonia. Disposition Summary Disposition Principal Diagnosis: Influenza Bronchitis Additional Diagnosis: hypertension diabetes hyperlipidemia BPH CHF OA Temporal Arteritis (on prednisone 15 mg QD) with right eye blindness Discharge Disposition: home or self care Discharge Instructions General Discharge Information Code Status: Full Code Patient's Diet: Regular Patient's Activity: As tolerated Follow-Up Instructions/Appts: Please follow up with your PCP within one week of discharge. Copies To: Paramjit SARAVIA,Mitchel
--- NOTE | 2017-12-15 11:47 | Transfer of Care Summary ---
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 Assessment: 1. Influenza 2. Viral Bronchitis 3. History of Temporal Arteritis on Prednisone 4. History of Diabetes 5. History of hypertension, CAD 6. Elevated Lactic Acid Hospital Course: The patient presented to the ED on 12/12 with complains of worsening symptoms. He was previously seen in the ED on 12/10. He was tested +ve for influenza on this visit and sent home on a course of Tamiflu and nebulizers. However, the patient felt that he had been experiencing increasing wheezing and work of breathing. His visiting nurse suggested him to return to the ED. On admission, he was found to have a lactate acid of 2.5. He was hydrated with IV NS 1L and his lactic acid trended down to normal. He was admitted and continued on his course of Tamiflu. He was also started on IV Solu-Medrol 40mg q8. It should be noted that the patient is chronically on Prednisone 15mg which was held at admission. He receives nebs as needed. His physical exam on admission revealed harsh diffuse wheezing which today still present has improved. His steroids have been reduced to 40mg q12 today. He can possibly be started on Prednisone 40mg tomorrow and tapered as an outpatient down to be maintained on 15mg which is his home dose. He is anticipated discharge for tomorrow 12/15. His sputum culture is growing Staph sensitive to Augmentin and Pseudomonas sensitive to Cipro. He will need to continue Augmentin for a total of one week. CMR done. Print and transmit meds Assessment/Plan: .
[2017-12-15 15:11] VITALS: BP 140/70
[2017-12-15] MEDS ORDERED: PREDNISONE10 M2 PO (15:15)
[2017-12-15] MEDS ORDERED: AUGMENTIN 875-1 EACH PO (15:37)
[2017-12-15 23:59] VITALS: BP 132/60
[2017-12-16 06:47] VITALS: BP 118/74
--- NOTE | 2017-12-16 07:22 | PN- Housestaff ---
See Addendum Subjective Follow-up For: Influenza B Subjective: No overnight events. Patient feels well this morning. Still having some coughing with sputum productive but no fevers, chills, night sweats, SOB, CP, or other issues. Review of Systems Constitutional: Reports: no symptoms. EENTM: Reports: no symptoms. Cardiovascular: Reports: no symptoms. Respiratory: Reports: see HPI. Gastrointestinal: Reports: no symptoms. Genitourinary: Reports: no symptoms. Musculoskeletal: Reports: no symptoms. Skin: Reports: no symptoms. Neurological/Psychological: Reports: no symptoms. Hematologic/Endocrine: Reports: no symptoms. Immunologic/Allergic: Reports: no symptoms. Objective Last 24 Hrs of Vital Signs/I&O Vital Signs Date Time Temp Pulse Resp B/P B/P Pulse O2 O2 Flow FiO2 Mean Ox Delivery Rate 12/16 0647 97.6 76 20 118/74 94 Room Air 12/15 2359 97.5 80 18 132/60 96 12/15 1600 93 Room Air 12/15 1600 93 Room Air 12/15 1511 98.5 82 21 140/70 98 12/15 0846 126/62 12/15 0846 126/62 12/15 0827 93 Room Air Intake & Output 12/16 0800 12/16 0000 12/15 1600 Intake Total 400 200 Output Total 400 500 Balance 0 -300 Intake, Oral 400 200 Output, Urine 400 500 Patient 112.576 kg Weight Physical Exam General Appearance: Alert, Oriented X3, Cooperative, No Acute Distress Skin: No Rashes, No Breakdown, No Significant Lesion Cardiovascular: Regular Rate, Normal S1, Normal S2 Lungs: mild wheezing Abdomen: Normal Bowel Sounds, Soft, No Tenderness Extremities: No Edema, Normal Pulses, No Tenderness/Swelling Current Medications: Current Medications Sig/Noel Start time Last Medication Dose Route Stop Time Status Admin Acetaminophen 650 MG Q6P PRN 12/12 2345 AC PO Albuterol Sulfate 3 ML EVERY 4 HRS/AWAKE 12/13 1200 AC 12/15 INH 1600 Alendronate Sodium 35 MG QSUN 12/14 0700 AC 12/14 PO 0543 Allopurinol 300 MG DAILY 12/13 1000 AC 12/15 PO 0845 Amoxicillin/ 875 MG Q12 12/14 1058 AC 12/15 Clavulanate Potassium PO 2134 Aspirin 81 MG DAILY 12/13 1000 AC 12/15 PO 0846 Atorvastatin Calcium 20 MG 1700 12/13 1700 AC 12/15 PO 1639 Benzocaine/Menthol 1 SONIYA Q2P PRN 12/13 0845 AC 12/15 PO 2140 Benzonatate 100 MG TID 12/13 1000 AC 12/15 PO 2135 Docusate Sodium 100 MG DAILY NEEDED PRN 12/15 0800 AC 12/15 PO 0929 Enoxaparin Sodium 40 MG DAILY 12/13 1000 AC 12/15 SC 0848 Finasteride 5 MG DAILY 12/13 1000 AC 12/15 PO 0846 Furosemide 80 MG DAILY 12/13 1000 AC 12/15 PO 0846 Insulin Aspart 0 AT BEDTIME 12/13 2200 AC 12/15 SC 2134 Insulin Aspart 0 TIDAC 12/13 0800 AC 12/15 SC 1639 Insulin Detemir 10 UNITS BID 12/15 1000 AC 12/15 SC 2134 Insulin Detemir 8 UNITS BID 12/13 1000 DC 12/14 SC 2116 Methylprednisolone 40 MG Q12H 12/15 1800 DC IV 12/15 2300 Methylprednisolone 40 MG Q8 12/14 2200 DC 12/15 IV 0622 Metoprolol Succinate 25 MG DAILY 12/13 1000 AC 12/15 PO 0846 Nystatin 1 CHRISTINE BID PRN 12/14 1115 AC TOP Oseltamivir Phosphate 30 MG BID 12/13 1000 DC 12/15 PO 12/15 2255 2135 Oxycodone/ 1 TAB Q6P PRN 12/12 2345 AC Acetaminophen PO Oxymetazoline HCl 2 SPRAY BID PRN 12/13 0630 DC 12/13 PIERCE 12/15 1831 1045 Polyethylene Glycol 17 GM DAILY 12/15 1000 AC 12/15 PO 0929 Prednisone 40 MG DAILY 12/16 1000 AC PO Prednisone 40 MG ONCE ONE 12/15 2130 DC 12/15 PO 12/15 2131 2133 Tamsulosin HCl 0.4 MG DAILY 12/13 1000 AC 12/15 PO 0846 Assessment/Plan Assessment: 82 yo M PMH hypertension, diabetes, hyperlipidemia, BPH, CHF, OA, Temporal Arteritis (on prednisone 15 mg QD) with right eye blindness and left eye macular degeneration, [place] 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 Problem List 1. Influenza B 2. Bronchitis 3. History of Temporal Arteritis on Prednisone #Influenza B/Bronchitis: Patient positive flu test at urgent care center. He has received a full course of ostelmivir. Sputum culture grew pseudomonas resistant to ceftazidine and MSSA. He is currently being treated with Augmentin for this. He can be discharged today. -TRC/nebs as needed -Prednisone taper: Patient on 15 mg daily baseline for GCA -Cipro for 5 days for bronchitis outpatient #Chronic medical problems: Continue home atorvastatin, aspirin, allopurinol, alendronate, finasteride, tamsulosin, metoprolol DVT prophylaxis with enoxaparin Consistent carbohydrate 1 diet Full code Problem List: 1. Influenza B Pain Ratin Pain Location: no Pain Goal: Remain pain free Pain Plan: see a/p Tomorrow's Labs & Rationales: no
[2017-12-16 08:37] LABS: ABSOLUTE BASOPHIL COUNT 0 /CUMM (0.0-0.2); ABSOLUTE EOSINOPHIL COUNT 0 /CUMM (0.0-0.7); ABSOLUTE GRANULOCYTE CT 6.9 /CUMM (1.4-6.5); ABSOLUTE LYMPH COUNT 1.7 /CUMM (1.2-3.4); ABSOLUTE MONOCYTE COUNT 0.1 /CUMM (0.10-0.60); BASOPHIL % 0.4 % (0.0-2.0); EOSINOPHIL % 0.2 % (0-5); GRANULOCYTE % 79.1 % (42.2-75.2); HEMATOCRIT 40.9 % (42-52); MEAN CORPUSCULAR HGB 32.7 PG (27.0-31.0); MEAN CORPUSCULAR HGB CONC 33.5 G/DL (33.0-37.0); MEAN CORPUSCULAR VOLUME 97.6 FL (80.0-94.0); MEAN PLATELET VOLUME 8.8 FL (7.4-10.4); PLATELET COUNT 177 /CUMM (130-400); RBC DISTRIBUTION WIDTH 17.3 % (11.5-14.5); RED BLOOD CELL CT 4.19 /CUMM (4.70-6.10); WHITE BLOOD CELL COUNT 8.7 /CUMM (4.8-10.8)
[2017-12-16 09:26] VITALS: BP 122/64
[2017-12-16] MEDS ORDERED: CIPRO500 M1 PO (11:09)
[2017-12-16] MEDS ORDERED: PREDNISONE10 M2 PO (11:10)
--- NOTE | 2017-12-16 11:11 | Discharge Summary ---
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 Admission Data: Vitals stable. Chest: b/l diffuse expiratory wheeze++. Labs: no leukocytosis, macrocytic anemia, bicarb 33, glucose 139, lactic acid 2.5, trop neg. CXR: no pneumonia. EKG: sinus rhythm, RBBB, no acute changes. Echo (2016): EF 55-60%. He was admitted to general medicine and treated for the following problems: 1. Influenza B 2. Bronchitis 3. History of Temporal Arteritis on Prednisone #Influenza B/Bronchitis: The patient presented to the ED on 12/12 with complains of worsening respiratory symptoms. He was previously seen in the ED on 12/10. He was tested +ve for influenza at urgent care and sent home on a course of ostelmivir and nebulizers. However, the patient felt that he had been experiencing increasing wheezing and work of breathing. His visiting nurse suggested him to return to the ED. On admission, he was found to have a lactate acid of 2.5. He was hydrated with IV NS 1L and his lactic acid trended down to normal. He was admitted and continued on his course of ostelmivir for full course. He was also started on IV methylprednisone 40mg q8. He received nebs as needed. His steroids have been tapered and he can continue the taper as an outpatient. He should resume his daily 15 mg of prednisone after the taper is completed and follow-up with rheumatology. Sputum culture grew pseudomonas resistant to ceftazidine and MSSA. He will receive 5 days of ciprofloxacin for this. #Chronic medical problems: His home medications were continued. Allergies: Coded Allergies: No Known Allergies (05/25/16) Disposition Summary Disposition Principal Diagnosis: 1. Influenza B Additional Diagnosis: 2. Bronchitis 3. History of Temporal Arteritis on Prednisone Discharge Disposition: home health services Discharge Instructions General Discharge Information Code Status: Full Code Patient's Diet: Diabetic diet Patient's Activity: As tolerated Follow-Up Instructions/Appts: Please take all medications as directed. Please follow-up with primary care and rheumatology. Medications at Discharge Discharge Medications: Stop taking the following medications: Oseltamivir Phosphate (Tamiflu) 75 MG CAPSULE ORAL TWICE DAILY Qty = 10 Prednisone (Prednisone) 10 MG TABLET ORAL DAILY Continue taking these medications: Allopurinol (Allopurinol) 300 MG TABLET 1 Tablet ORAL DAILY Qty = 30 Comments: Last Taken: 05/28/16 Time: 930 AM Atorvastatin Calcium (Atorvastatin Calcium) 20 MG TABLET 1 Tablet ORAL DAILY Qty = 30 Comments: Last Taken: 05/27/16 Time: 430 PM Furosemide (Furosemide) 20 MG TABLET 4 Tablet ORAL DAILY Comments: Last Taken: 05/28/16 Time: 930 AM Tamsulosin HCl (Flomax) 0.4 MG CAP.ER.24H 0.4 Milligram ORAL DAILY Days = 30 Comments: Last Taken: 05/28/16 Time: 930 AM Aspirin (Aspirin*) 81 MG TAB.CHEW 81 Milligram ORAL DAILY Days = 30 Comments: Last Taken: 05/28/16 Time: 920 AM Finasteride (Finasteride) 5 MG TABLET 5 Milligram ORAL DAILY Days = 30 Comments: Last Taken: 05/28/16 Time: 930 AM Alendronate Sodium (Alendronate Sodium) 35 MG TABLET 1 Tablet ORAL EVERY FRIDAY Tocilizumab (Actemra) 162 MG/0.9 ML SYRINGE 0.9 Milliliters Inject into fatty tissue ONCE A WEEK Insulin Aspart (Novolog) 100 UNIT/ML VIAL 0 Units Inject into fatty tissue BEFORE MEALS AND AT BEDTIME Days = 28 Instructions: BEFORE MEALS Blood Insulin Sugar Units <80 0 81-150 6 151-200 8 201-250 10 251-300 12 301-350 14 351-400 16 >400 16 & Call Doctor AT BEDTIME Blood Insulin Sugar Units <80 0 81-100 0 101-200 0 201-250 0 251-300 3 301-350 4 351-400 5 >400 5 & Call Doctor Insulin Detemir (Levemir) 100 UNIT/ML VIAL 8 Units Inject into fatty tissue TWICE DAILY Days = 28 Albuterol Sulfate (Proair Hfa) 90 MCG HFA.AER.AD 2 Puff Inhale through mouth EVERY 4-6 HOURS NEEDED as needed for WHEEZING COUGH Qty = 1 Metoprolol Succ XL (Toprol XL) 25 MG TAB 1 Tablet ORAL DAILY Ranitidine HCl (Acid Chemical [employer] Supervisor) 150 MG TABLET 1 Tablet ORAL TWICE DAILY Aspirin/Acetaminophen/Caffeine (Excedrin Extra Strength Caplet) 250 MG-250 MG-65 MG TABLET 1-2 Tablet ORAL as needed for PAIN Metformin HCl (Metformin HCl) 500 MG TABLET 1 Tablet ORAL TWICE DAILY Start taking the following new medications: Prednisone (Prednisone) 10 MG TABLET 1 Tablet ORAL As Directed Qty = 30 No Refills Instructions: . Comments: Please take 4 tablets of Prednisone 10mg on 12/17/17 then take 3 tablets of Prednisone 10mg from 12/18/17 to 12/19/17 then take 2 tablets of Prednisone 10mg from 12/20/17 to 12/21/17 then take your usual dose of 15mg daily and follow up with rheumatology. Continue taking Prednisone 1.5 tablets of Prednisone 10mg then. Ciprofloxacin HCl (Cipro) 500 MG TABLET 1 Tablet ORAL TWICE DAILY Qty = 10 No Refills Copies To: Paramjit SARAVIA,[place]
== END 2017-12-16 13:15 | disposition home health service (06) | DRG 194 ==
LOC: ERH 19:08 → ERHI 22:12 → 2NA 22:12 → ENRESERV 23:00 → 2NA 23:47 → ENPENDDIS 12-16 11:30 → 2NA 12-16 13:15
PROVIDERS: Internal Medicine; Student in an Organized Health Care Education/Training Program
DX: J10.1 Influenza due to other identified influenza virus with other respiratory manifestations (principal); E87.2 Acidosis; L89.159 Pressure ulcer of sacral region, unspecified stage; M31.6 Other giant cell arteritis; I11.0 Hypertensive heart disease with heart failure; B96.5 Pseudomonas (aeruginosa) (mallei) (pseudomallei) as the cause of diseases classified elsewhere; I50.9 Heart failure, unspecified; B95.61 Methicillin susceptible Staphylococcus aureus infection as the cause of diseases classified elsewhere; E11.9 Type 2 diabetes mellitus without complications; J20.8 Acute bronchitis due to other specified organisms; E86.0 Dehydration; I45.10 Unspecified right bundle-branch block; Z95.1 Presence of aortocoronary bypass graft; N40.0 Benign prostatic hyperplasia without lower urinary tract symptoms; I25.2 Old myocardial infarction; M19.90 Unspecified osteoarthritis, unspecified site; M10.9 Gout, unspecified; Z96.653 Presence of artificial knee joint, bilateral; H35.30 Unspecified macular degeneration; H54.40 Blindness, one eye, unspecified eye; I25.10 Atherosclerotic heart disease of native coronary artery without angina pectoris; E78.5 Hyperlipidemia, unspecified; Z79.52 Long term (current) use of systemic steroids; Z79.84 Long term (current) use of oral hypoglycemic drugs; Z79.4 Long term (current) use of insulin
CPT/HCPCS: 2NAP; 87184; 36415; 36592; 71045; 82436; 87070; 87147; 93005; 93010; 96374; 97161-GP; 97530-GO; J1650; J2920; J2930; J3490